=== PATIENT | female | born 1965 | race African-American/Black ===

== ENCOUNTER 2019-03-06 14:39 | Emergency (ER) | payer MEDICARE, MEDICAID ==
[~2019-03-06] VITALS: Ht 170.2 cm; Wt 60.8 kg
[2019-03-06 14:59] VITALS: BP 91/55
--- NOTE | 2019-03-06 15:01 | NUR ---
ED Nurse Note: pt walked in to ED due to pain on right arm since yesterday. per pt, woke up with pain wihout any injury. thelma swelling noted on fingers. dialysis AV shunt noted on left upper arm. on every MWF. last one done today. AAO x4. respirations even and non-labored noted. will wait for the further order.
[2019-03-06] MEDS ORDERED: Morphine Sulfate 2mg/ml Inj(IV/IM USE ONLY) IVP ONE (15:15)
[2019-03-06 15:18] VITALS: BP 127/87
--- NOTE | 2019-03-06 15:24 | NUR ---
ED Nurse Note: RN confirmed with Dr. Javier that morphine will give as IM shot.
[2019-03-06] MEDS: Morphine Sulfate 2mg/ml Inj(IV/IM USE ONLY) IM ONE ×2 (15:31→15:35)
--- NOTE | 2019-03-06 15:31 | NUR ---
ED Nurse Note: pt refused pain meds. per pt, " I have pain meds at home. I like to find out why I am having pain." Dr. Javier notified.
--- NOTE | 2019-03-06 15:52 | Emergency Room Report ---
History of Present Illness General Chief Complaint: Pain Source: Patient Present Illness HPI Patient presents with complaints of right arm pain she has had this off-and-on for the past several months however she felt that over the past several days she has had increased discomfort She associates some of the discomfort with using a cane with her right hand She does get dialysis and was just dialyzed today Her dialysis is on the left arm with AV shunt patient has a previous nonfunctioning right AV shunt Denies any chest pain or shortness of breath denies any neck pain denies any focal weakness Allergies: Coded Allergies: TRAZODONE (Verified Allergy, Unknown, 03/06/19) Patient History Past Medical History: see triage record Pertinent Family History: none Now: No Reviewed Nursing Documentation: PMH: Agreed; PSxH: Agreed Nursing Documentation-PMH Past Medical History: No History, Except For Hx Dialysis: Yes - M-W-F Review of Systems All Other Systems: negative except mentioned in HPI Physical Exam Vital Signs Date Time Temp Pulse Resp B/P (MAP) Pulse Ox O2 Delivery O2 Flow Rate FiO2 03/06/19 14:44 97.9 85 21 91/55 (67) 96 Room Air Sp02 EP Interpretation: reviewed, normal General Appearance: well appearing, no apparent distress Head: normocephalic, atraumatic Eyes: bilateral eye PERRL, bilateral eye EOMI ENT: hearing grossly normal, normal pharynx, TMs + canals normal, uvula midline Neck: full range of motion, supple, no meningismus, no bony tend Respiratory: lungs clear, normal breath sounds, no rhonchi, no respiratory distress, no retraction, no accessory muscle use Cardiovascular #1: normal peripheral pulses, regular rate, rhythm, no edema, no gallop, no JVD, no murmur Gastrointestinal: normal bowel sounds, non tender, soft, no mass, no organomegaly, non-distended, no guarding, no hernia, no pulsatile mass, no rebound Genitourinary: no CVA tenderness Musculoskeletal: other - Equal publication editor bilaterally, patient has previous AV shunt in the right arm nonfunctioning no obvious edema Neurologic: oriented x3, responsive, senior trial attorney III-XII nml as tested, motor strength/ tone normal, sensory intact Psychiatric: mood/affect normal Skin: no rash Lymphatic: normal inspection, no adenopathy Medical Decision Making Diagnostic Impression: Primary Impression: DVT (deep venous thrombosis) Additional Impressions: Renal failure Subtherapeutic anticoagulation ER Course Patient is a fairly complex patient with multiple differential to consideration including but not limited to cardiac cardiopulmonary and vascular emergencies Given the presentation ultrasound was obtained emergently There was evidence of DVT in the subclavian on the right side Given this finding the patient's primary physician was contacted who is the patient's exhibit preparator He did follow-up with the patient's vascular specialty who I spoke with in the emergency room reports that the patient has had this DVT on the right side for over the past 2 years And chronically patient is on anticoagulation reports that she was recently seen at [facility] And her INR was elevated and is now being attempted to be adjusted With that information patient's INR was obtained here it does appear to be mildly subtherapeutic Patient is following with the Coumadin clinic The findings on the right upper arm Appears to be chronic in nature Patient was stable for discharge and close outpatient follow-up Labs Test 03/06/19 16:46 White Blood Count 5.7 K/UL (4.8-10.8) Red Blood Count 4.53 M/UL (4.20-5.40) Hemoglobin 14.6 G/DL (12.0-16.0) Hematocrit 45.3 % (37.0-47.0) Mean Corpuscular Volume 100 FL (80-99) Mean Corpuscular Hemoglobin 32.2 PG (27.0-31.0) Mean Corpuscular Hemoglobin Concent 32.2 G/DL (32.0-36.0) Red Cell Distribution Width 14.2 % (11.6-14.8) Platelet Count 264 K/UL (150-450) Mean Platelet Volume 6.8 FL (6.5-10.1) Neutrophils (%) (Auto) 41.4 % (45.0-75.0) Lymphocytes (%) (Auto) 50.2 % (20.0-45.0) Monocytes (%) (Auto) 4.9 % (1.0-10.0) Eosinophils (%) (Auto) 2.9 % (0.0-3.0) Basophils (%) (Auto) 0.6 % (0.0-2.0) Prothrombin Time 15.4 SEC (9.30-11.50) Prothromb Time International Ratio 1.5 (0.9-1.1) Activated Partial Thromboplast Time 28 SEC (23-33) Sodium Level 141 MMOL/L (136-145) Potassium Level 4.1 MMOL/L (3.5-5.1) Chloride Level 96 MMOL/L (98-107) Carbon Dioxide Level 33 MMOL/L (21-32) Anion Gap 12 mmol/L (5-15) Blood Urea Nitrogen 15 mg/dL (7-18) Creatinine 4.9 MG/DL (0.55-1.30) Estimat Glomerular Filtration Rate 11.3 mL/min (>60) Glucose Level 56 MG/DL (74-106) Calcium Level 9.6 MG/DL (8.5-10.1) Chest X-Ray Diagnostic Results Chest X-Ray Diagnostic Results : Chest X-Ray Ordered: Yes # of Views/Limited/Complete: 1 View Indication: Chest Pain EP Interpretation: Yes Interpretation: no consolidation, no effusion, no pneumothorax Impression: No acute disease Electronically Signed by: Dulce Javier DO CT/MRI/US Diagnostic Results CT/MRI/US Diagnostic Results : Impression Right upper extremity ultrasoundIMPRESSION: Right subclavian vein thrombosis. Right cephalic vein thrombosis. [facility] has communicated the preliminary results to the Emergency Department. Their findings are largely concordant with this report. Last Vital Signs Date Time Temp Pulse Resp B/P (MAP) Pulse Ox O2 Delivery O2 Flow Rate FiO2 03/06/19 15:18 81 127/87 03/06/19 14:59 97.9 21 96 Room Air Status: improved Disposition: HOME, SELF-CARE Condition: Improved Referrals: Suzanne Strauss MD (PCP) Additional Instructions: Patient is provided with the discharge instructions notified to follow up with primary doctor in the next 2-3 days otherwise return to the er with any worsening symptoms. Please note that this report is being documented using DRAGON technology. This can lead to erroneous entry secondary to incorrect interpretation by the dictating instrument. Dulce Javier DO Mar 06, 2019 15:52
--- NOTE | 2019-03-06 16:52 | Diagnostic Imaging Report ---
Indication: Right upper extremity pain and swelling. Technique: Duplex Doppler imaging of the veins in the upper extremity performed. FINDINGS: The jugular vein demonstrate normal color flow and waveform signal. No evidence of thrombosis. There is thrombosis of the right subclavian vein demonstrated by color flow images. There is also thrombus within the right cephalic vein which is noncompressible. The axillary vein, brachial, basilic veins show no evidence of thrombosis with good compressibility, normal color flow and waveform analysis. IMPRESSION: Right subclavian vein thrombosis. Right cephalic vein thrombosis. [facility] has communicated the preliminary results to the Emergency Department. Their findings are largely concordant with this report. Critical value communication Dr. Javier 03/06/2019 at 17:02
[2019-03-06 17:15] LABS: BASOPHILS % (AUTO) 0.6 % (0.0-2.0); EOSINOPHILS % (AUTO) 2.9 % (0.0-3.0); HEMATOCRIT 45.3 % (37.0-47.0); HEMOGLOBIN 14.6 G/DL (12.0-16.0); LYMPHOCYTES % (AUTO) 50.2 % (20.0-45.0); MEAN CORPUSCULAR VOLUME 100 FL (80-99); MONOCYTES % (AUTO) 4.9 % (1.0-10.0); NEUTROPHILS % (AUTO) 41.4 % (45.0-75.0); PLATELET COUNT 264 K/UL (150-450); RED BLOOD COUNT 4.53 M/UL (4.20-5.40); RED CELL DISTRIBUTION WIDTH 14.2 % (11.6-14.8); WHITE BLOOD COUNT 5.7 K/UL (4.8-10.8)
[2019-03-06 17:20] LABS: INR 1.5 (0.9-1.1)
[2019-03-06 17:21] LABS: ANION GAP 12 mmol/L (5-15); BLOOD UREA NITROGEN 15 mg/dL (7-18); CALCIUM 9.6 MG/DL (8.5-10.1); CARBON DIOXIDE 33 MMOL/L (21-32); CHLORIDE 96 MMOL/L (98-107); CREATININE 4.9 MG/DL (0.55-1.30); POTASSIUM 4.1 MMOL/L (3.5-5.1); SODIUM 141 MMOL/L (136-145)
[2019-03-06 17:48] VITALS: BP 120/70
--- NOTE | 2019-03-06 17:49 | NUR ---
ER DISCHARGE NOTE: Patient is cleared to be discharged per ERMD, pt is aox4, on room air, with stable vital signs. pt was given dc instructions, pt was able to verbalize understanding, pt id band removed without complications. pt is able to ambulate with steady gait. pt took all belongings.
--- NOTE | 2019-03-07 11:09 | Diagnostic Imaging Report ---
Indication: Dyspnea Comparison: 08/03/2005 A single view chest radiograph was obtained. Findings: No definite infiltrate or pulmonary vascular congestion identified. There is a left axillary stent. There are surgical clips in the left arm. The heart is enlarged. The aorta is mildly enlarged consistent with atherosclerotic vascular disease. The bones are osteopenic. Impression: No acute disease
== END 2019-03-06 17:49 | disposition home or self-care (01) ==
LOC: EMR 15:28
DX: I82.621 Acute embolism and thrombosis of deep veins of right upper extremity (principal); M86.8X9 Other osteomyelitis, unspecified sites; I51.7 Cardiomegaly
CPT/HCPCS: 36415; 71045; 80048; 85025; 85610; 85730; 93971; 96374; 99284